=== PATIENT | female | born 1985 | race Caucasian/White ===

== ENCOUNTER 2018-07-31 10:14 | Inpatient (IN) | payer BC, OTHER ==
[~2018-07-31] VITALS: Ht 154.9 cm; Wt 84.8 kg
[2018-07-31] VITALS (51 sets, daily range): BP systolic 126–210; BP diastolic 63–96
[2018-07-31] MEDS ORDERED: LABE300T19 PO (10:40)
[2018-07-31] MEDS ORDERED: ASPI81CH33 PO (10:40)
[2018-07-31] MEDS ORDERED: FOLI1TAB11 PO (10:40)
[2018-07-31] MEDS ORDERED: PREN29CH2 PO (10:40)
[2018-07-31] MEDS ORDERED: ACETAMINOPHEN 500 MG TAB PO ONE (12:00)
[2018-07-31] MEDS ORDERED: PENICILLIN G POTASSIUM IV 5 MU in D5W MINI-BAG PLUS 100 ML IV STA (14:00)
[2018-07-31 14:23] LABS: HEMATOCRIT 37.5 % (36.0-47.0); HEMOGLOBIN 11.9 g/dl (12.0-15.5); MEAN CORPUSCULAR HEMOGLOBIN 26.2 pg (27.0-33.0); MEAN CORPUSCULAR HGB CONC 31.7 g/dl (32.0-36.5); MEAN CORPUSCULAR VOLUME 82.6 fl (80.0-96.0); PLATELET COUNT, AUTOMATED 242 10^3/uL (150-450); RED BLOOD COUNT 4.54 10^6/uL (4.00-5.40); WHITE BLOOD COUNT 15.4 10^3/uL (4.0-10.0)
[2018-07-31] MEDS: miSOPROStol 50 MCG 1/2 TAB (S0191) PO SCH ×3 (14:25→22:50)
[2018-07-31 14:34] LABS: ALT/SGPT 27 U/L (12-78); BILIRUBIN,TOTAL 0.4 MG/DL (0.2-1.0); CREATININE FOR GFR 0.81 MG/DL (0.55-1.30); GLOMERULAR FILTRATION RATE > 60.0 (>60); LDH LACTATE DEHYDROGENASE 122 U/L (84-246); URIC ACID 8.5 MG/DL (2.6-6.0)
[2018-07-31] MEDS ORDERED: hydrALAZINE INJ 20 MG/ML VIAL IV ONE (15:00)
[2018-07-31] MEDS ORDERED: MAG Sulf (L&D) 4 GM/100 ML 4 GM in APPROPRIATE DILUENT 1 EA IV ONE (15:00)
[2018-07-31] MEDS: MAG Sulf (OBGYN) 20GM/500ML 20,000 MG in APPROPRIATE DILUENT 1 EA IV SCH (15:32)
[2018-07-31] MEDS: LR 1,000 ML IV SCH (15:32)
[2018-07-31] MEDS ORDERED: PENICILLIN G POTASSIUM IV 2.5 MU in APPROPRIATE DILUENT 1 EA IV SCH (18:00)
[2018-07-31] MEDS ORDERED: BUTORPHANOL 2 MG/ML INJ (J0595) IV ONE (20:45)
[2018-07-31] MEDS: PROMETHAZINE INJ 25 MG/ML VIAL (J2550) IV PRN (21:00)
[2018-07-31] MEDS: LABETALOL 200 MG TAB PO SCH (21:45)
[2018-07-31] MEDS ORDERED: miSOPROStol 50 MCG 1/2 TAB (S0191) PO ONE (23:15)
--- NOTE | 2018-07-31 23:27 | NUR ---
L&D Note: S: Resting following stadol and phenergen. Headache has improved. Has required 5mg hydralazine. O: mild range currently FHR: 130s, min variability following stadol and phenergan ( prior to stadol, moderate variability with spontaneous accels). No decles. Irregular contraction on tocometer Gen: NAD abd: soft, gravid cx: FT/25/-3 A/P 32yo at 33w4d with CHTN with superimposed pre-E- currently stable Magnesium sulfate neuroprophylaxis -Will increase 100mcg cytotec Aurora Winters MD
[2018-07-31] MEDS ORDERED: ONDANSETRON 4MG/2ML VIAL (J2405) As Ordered ONE (23:37)
[2018-07-31] MEDS ORDERED: ONDANSETRON 4MG/2ML VIAL (J2405) IV PRN (23:45)
[2018-08-01] VITALS (74 sets, daily range): BP systolic 90–188; BP diastolic 50–100
[2018-08-01] MEDS: MAG Sulf (OBGYN) 20GM/500ML 20,000 MG in APPROPRIATE DILUENT 1 EA IV SCH ×3 (01:20→21:35)
[2018-08-01] MEDS ORDERED: miSOPROStol 50 MCG 1/2 TAB (S0191) PO SCH (03:00)
[2018-08-01] MEDS ORDERED: BUTORPHANOL 2 MG/ML INJ (J0595) IV ONE (03:45)
[2018-08-01] MEDS: PROMETHAZINE INJ 25 MG/ML VIAL (J2550) IV PRN (03:50)
--- NOTE | 2018-08-01 05:53 | HPE ---
DATE OF ADMISSION: 07/31/2018 REASON FOR ADMISSION: Chronic hypertension with superimposed preeclampsia. HISTORY OF PRESENT ILLNESS: This patient is a 32-year-old 5, para 3 who presents at 33 weeks 4 days estimated gestational age with estimated date of confinement (EDC) of September 16, 2018. This is a patient who has been followed a [facility]. She was admitted on Sunday, July 29, 2018 with concerns for superimposed preeclampsia. I spoke with her primary sample carrier, Dr. Knight who informed me that she was admitted Wednesday with worsening blood pressures in the severe range. She was given intravenous (IV) hydralazine as well as increased in her labetalol from 500 mg twice a day to 600 mg twice a day and was started on amlodipine 5 mg. She was given a course of betamethasone for lung maturity. She had a 10 biophysical profile with normal growing fetus in the 48%. She had pre-eclamptic labs that were drawn which was unremarkable and was sent home. A 24-hour urine protein previously on July 15 was 317, this morning it returned at 540. The patient was then notified and was instructed to return to the hospital for further management secondary to being diagnosed with superimposed preeclampsia. Secondary to transportation and the proximity to her hospital, she presented to [facility]. Upon her arrival she reports a headache that has been worsening throughout her . She denies any visual changes currently but reports some visual disturbances when her headache has worsened. She denies any abdominal pain. She reports active movement. Denies any contractions, vaginal bleeding or leakage of fluid. course has been remarkable for chronic hypertension. She was initially taking lisinopril and it was switched to hydralazine during her and later switched to labetalol for management of her hypertension. Her care was initiated at the [facility], she was referred to the center at [place] and later transferred to [facility]. Her course was also remarkable for A1 gestational diabetes. PAST MEDICAL HISTORY: Hypertension. PAST SURGICAL HISTORY: None. PAST OBSTETRICAL HISTORY: 5, para 3. She reports having hypertension with her last two pregnancies. She is proven to 7 pounds 10 ounces. MEDICATIONS: - labetalol 600 mg twice a day - amlodipine - vitamins ALLERGIES: She has no known drug allergies. SOCIAL HISTORY: Denies any alcohol, tobacco or drug use during . PHYSICAL EXAMINATION: VITAL SIGNS: Blood pressure 178/93. She has had repetitive elevated blood pressures in the severe range 170s-180s, diastolic are 90s. She has a category 1 rate tracing. heart rate 140s with spontaneous accelerations, moderate variability, no contractions on tocometer. GENERAL APPEARANCE: Well appearing, no acute distress. Lungs: Clear to auscultation bilaterally. CARDIOVASCULAR: Regular rate and rhythm. ABDOMEN: Gravid, nontender. NEUROLOGIC: Neurologically she is grossly intact. ASSESSMENT: 1. This patient is a 32-year-old 5, para 3 at 33 weeks 4 days estimated gestational age, estimated date of confinement (EDC) 09/16/2018 with chronic hypertension with superimposed preeclampsia based on worsening hypertension and worsening proteinuria, currently stable. 2. Reassuring status. PLAN: 1. Admit to Labor and Delivery. CBC, RPR, type and screen, pre-eclamptic panel. 2. Patient has been thoroughly counseled regarding her diagnosis. I discussed management plan to include hypertension management with intravenous (IV) labetalol or hydralazine. I have also discussed magnesium sulfate for neuro protection and recommendations to proceed with induction of labor following her completion of a course of steroids. I discussed induction of labor, and regards to medication as well as procedure performed. She has also been verbally consented for emergency surgery,blood products, anesthesia. All of her questions have been answered. I reviewed risks, benefits as well as alternative treatment, she has agreed with plan. Will initiate her induction of labor with 50 mcg of oral misoprostol. MTDD
[2018-08-01] MEDS ORDERED: OXYTOCIN 30 UNITS IN 0.9% NaCl 500ML IV BAG (J2590) As Ordered ONE (08:22)
[2018-08-01] MEDS ORDERED: PENICILLIN G POTASSIUM IV 5 MU in D5W MINI-BAG PLUS 100 ML IV STA (08:22)
[2018-08-01] MEDS ORDERED: OXYTOCIN DRIP 30 UNITS in APPROPRIATE DILUENT 1 EA IV SCH ×2 (08:30→20:43)
--- NOTE | 2018-08-01 08:32 | IPNPDOC ---
Obstetrical Progress Note Date of Service Aug 01, 2018 Subjective patient reports she is uncomfortable with her contractions. Objective Vital Signs Date Time Temp Pulse Resp B/P (MAP) Pulse Ox O2 Delivery O2 Flow Rate FiO2 08/01/18 06:04 98.3 86 139/69 (92) 08/01/18 03:50 17 Assessment Heart Rate (FHR): 125 Variability: Minimal Accelerations: None Decelerations: None Heart Rate Tracing: Category II (medication induced Category II tracing- Patient is on Magnesium and had Stadol and Phenergan) Tocometer Contractions: Yes Frequency: regular, other (5-7 minutes) Sterile Vaginal Examination Dilation: 1cm Effacement (%): 50% Station: -1 Cervical Consistency: Soft Cervical Position: Anterior Postion/Presentation: Cephalic presentation Assessment and Plan Age: 32 : 5 Term: 3 Pre-term: 0 Abortions: 1 Livin EGA at Admission: 33.3 Status: Reassuring Anticipate: Vaginal Delivery Additional Comments Manriquez bulb ([employer]) inserted after educating patient on insertion. 50/40 cc inserted into manriquez. IV Pitocin ordered and to be started. GBS prophylaxis to be started now. HARJEET MIRELES CNM Aug 01, 2018 08:32
[2018-08-01] MEDS: LABETALOL 200 MG TAB PO SCH ×2 (08:38→21:36)
[2018-08-01] MEDS ORDERED: FENTANYL 2MCG/ML ROPIVACAINE 0.2% IN 0.9% NACL 100ML IVBAG As Ordered ONE (10:22)
[2018-08-01 10:38] LABS: HEMATOCRIT 34.3 % (36.0-47.0); HEMOGLOBIN 11.2 g/dl (12.0-15.5); MEAN CORPUSCULAR HEMOGLOBIN 26.9 pg (27.0-33.0); MEAN CORPUSCULAR HGB CONC 32.7 g/dl (32.0-36.5); MEAN CORPUSCULAR VOLUME 82.5 fl (80.0-96.0); PLATELET COUNT, AUTOMATED 234 10^3/uL (150-450); RED BLOOD COUNT 4.16 10^6/uL (4.00-5.40); WHITE BLOOD COUNT 16.1 10^3/uL (4.0-10.0)
[2018-08-01] MEDS: LR 1,000 ML IV SCH ×2 (11:52→13:39)
[2018-08-01] MEDS ORDERED: ePHEDrine SULFATE 25 MG/5 ML(5MG/ML) SYRINGE As Ordered ONE (11:59)
[2018-08-01] MEDS: ePHEDrine SULFATE 25 MG/5 ML(5MG/ML) SYRINGE IV PRN ×3 (12:00→12:35)
[2018-08-01] MEDS: FENTANYL/ROPIVACAINE/NACL BAG 100 ML EPIDURAL SCH ×2 (12:20→19:12)
[2018-08-01] MEDS ORDERED: EPIDURAL/PCA KEYS XX PRN (12:30)
[2018-08-01] MEDS ORDERED: diphenhydrAMINE INJ 50MG/ML VIAL (J1200) IV PRN (12:30)
[2018-08-01] MEDS ORDERED: LACTATED RINGER'S 1000 ML IV PRN (12:30)
[2018-08-01] MEDS ORDERED: NALOXONE INJ 0.4 MG/1 ML VIAL (J2310) IV PRN (12:30)
[2018-08-01] MEDS ORDERED: REFRIGERATOR IV KEYS XX PRN (12:30)
[2018-08-01] MEDS ORDERED: EPIDURAL COMMENT XX SCH (12:30)
[2018-08-01] MEDS ORDERED: ONDANSETRON 4MG/2ML VIAL (J2405) IV PRN (12:30)
[2018-08-01] MEDS: PENICILLIN G POTASSIUM IV 2.5 MU in APPROPRIATE DILUENT 1 EA IV SCH ×2 (12:34→17:01)
--- NOTE | 2018-08-01 16:02 | IPNPDOC ---
Obstetrical Progress Note Date of Service Aug 01, 2018 Subjective 1440: Patient reports she is comfortable with her epidural. Objective Vital Signs Date Time Temp Pulse Resp B/P (MAP) Pulse Ox O2 Delivery O2 Flow Rate FiO2 08/01/18 15:28 98.7 88 18 127/68 (87) Assessment Heart Rate (FHR): 120 Variability: Moderate Decelerations: None Heart Rate Tracing: Category I Tocometer Contractions: Yes Frequency: regular, other (3-4 minutes) Strength: palpated as mild Sterile Vaginal Examination Dilation: 4 cm Effacement (%): 80% Station: -2 Cervical Consistency: Soft Cervical Position: Anterior Postion/Presentation: Cephalic presentation (AROM to a moderate amount of clear fluid. FSE and IUPC placed ) Assessment and Plan Weeks & Days 33.3 Status: Reassuring Anticipate: Vaginal Delivery Additional Comments Continue with IV Pitocin per order. HARJEET MIRELES CNM Aug 01, 2018 16:02
[2018-08-01] MEDS ORDERED: ACETAMINOPHEN 500 MG TAB PO ONE (18:00)
--- NOTE | 2018-08-01 19:53 | IPNPDOC ---
Obstetrical Progress Note Date of Service Aug 01, 2018 Subjective Patient is comfortable with her epidural. Objective Vital Signs Date Time Temp Pulse Resp B/P (MAP) Pulse Ox O2 Delivery O2 Flow Rate FiO2 08/01/18 19:13 93 18 143/72 (95) 08/01/18 18:43 98.8 Assessment Heart Rate (FHR): 130 Variability: Minimal to moderate Decelerations: Variable Heart Rate Tracing: Category II (occasional variable declerations noted. ) Tocometer Contractions: Yes Frequency: regular Sterile Vaginal Examination Dilation: 4 cm Effacement (%): 90% Station: 0 Postion/Presentation: Cephalic presentation Assessment and Plan Status: Reassuring Anticipate: Vaginal Delivery Additional Comments Patient continue to be on Magnesium 2 grams/hr and is on 12 mu of IV Pitocin. HARJEET MIRELES CNM Aug 01, 2018 19:53
[2018-08-01] MEDS ORDERED: DOCUSATE SODIUM 100 MG CAP PO PRN (20:45)
[2018-08-01] MEDS ORDERED: RHOGAM 300 MCG (1500 IU) INJ (J2790) IM SCH (20:45)
[2018-08-01] MEDS ORDERED: DIBUCAINE 1% OINTMENT 30GM TOP PRN (20:45)
[2018-08-01] MEDS ORDERED: METHYLERGONOVINE MALEATE 0.2 MG TAB PO PRN (20:45)
[2018-08-01] MEDS ORDERED: MEASLES,MUMPS,RUBELLA VACCINE INJ (MMR-II) (90707) SC SCH (20:45)
--- NOTE | 2018-08-01 20:56 | DNPDOC ---
[facility] Delivery Note Delivery Note DATE OF DELIVERY: 08/01/2018 at 2020 PREDELIVERY DIAGNOSIS: 33-3/7 weeks' gestation and labor. POST DELIVERY DIAGNOSIS: Delivered. PROCEDURE: Spontaneous vaginal delivery. BUSINESS PERFORMANCE ANALYST: Harjeet Aguiar CNM, [place] ANESTHESIA: epidural. ESTIMATED BLOOD LOSS: 350 mL. FINDINGS: 4 pounds 6 ounces; 1978 grams; female , Score 8/9, nuchal cord times 1 loose, preeclampsia with severe features, betamethasone complete. DELIVERY SUMMARY: Patient is a 32-year-old female who presented to L&D with complaints of a headache and severe range blood pressures. She received betamethasone from [facility] on 07/30/18. She was placed on magnesium sulfate and received 5 doses of cytotec, a manriquez bulb and IV Pitocin. She progressed to fully dilated at 2018. Dr. Eldridge, neonatology, was notified prior to delivery. She pushed to a living female in the HEATHER position with restitution to LOT at 2020. A loose nuchal cord was noted. The anterior shoulder delivered with ease and the corpus immediately followed. The baby was placed on the maternal abdomen active and crying. The cord was clamped x2 and cut by the FOB. A 3-vessel cord was noted. The placenta delivered spontaneously and intact. The placenta was sent to pathology. Uterine hemostasis was achieved via rapid infusion of IV Pitocin and fundal massage. The vagina, cervix, and perineum were inspected and found to be intact. The baby was taken to the NICU for admission due to prematurity. Baby in room with mom and doing well. Patient plans to formula feed. They are naming their daughter "Rina." Both mom and baby are in stable condition. All counts are correct. HARJEET AGUIAR CNM Aug 01, 2018 20:56
[2018-08-01] MEDS: NITROFURANTOIN (MACROBID) 100 MG CAP PO SCH (21:36)
[2018-08-01] MEDS: IBUPROFEN 800 MG TAB PO PRN (22:21)
[2018-08-02] VITALS (22 sets, daily range): BP systolic 104–177; BP diastolic 56–104
[2018-08-02 06:32] LABS: HEMATOCRIT 34.7 % (36.0-47.0); HEMOGLOBIN 11.3 g/dl (12.0-15.5); MEAN CORPUSCULAR HEMOGLOBIN 26.9 pg (27.0-33.0); MEAN CORPUSCULAR HGB CONC 32.6 g/dl (32.0-36.5); MEAN CORPUSCULAR VOLUME 82.6 fl (80.0-96.0); PLATELET COUNT, AUTOMATED 213 10^3/uL (150-450); WHITE BLOOD COUNT 15.4 10^3/uL (4.0-10.0)
[2018-08-02] MEDS: IBUPROFEN 800 MG TAB PO PRN ×2 (06:35→14:28)
[2018-08-02 07:04] LABS: ALT/SGPT 24 U/L (12-78); BILIRUBIN,TOTAL 0.5 MG/DL (0.2-1.0); CREATININE FOR GFR 0.77 MG/DL (0.55-1.30); GLOMERULAR FILTRATION RATE > 60.0 (>60); LDH LACTATE DEHYDROGENASE 153 U/L (84-246); URIC ACID 5.6 MG/DL (2.6-6.0)
[2018-08-02] MEDS: MAG Sulf (OBGYN) 20GM/500ML 20,000 MG in APPROPRIATE DILUENT 1 EA IV SCH ×2 (07:52→17:34)
[2018-08-02] MEDS: LABETALOL 200 MG TAB PO SCH ×2 (07:53→20:38)
[2018-08-02] MEDS: ONDANSETRON 4MG/2ML VIAL (J2405) IV PRN ×2 (08:36→17:37)
[2018-08-02] MEDS: PRENATAL VITAMINS CHEWABLE TABLET PO SCH (09:00)
[2018-08-02] MEDS ORDERED: DOCUSATE SODIUM 100 MG CAP PO PRN (09:15)
[2018-08-02] MEDS: NITROFURANTOIN (MACROBID) 100 MG CAP PO SCH ×2 (09:55→20:36)
[2018-08-02] MEDS: ACETAMINOPHEN 500 MG TAB PO PRN ×2 (09:57→20:25)
[2018-08-02] MEDS: LR 1,000 ML IV SCH (12:33)
[2018-08-02 23:31] LABS: HEMATOCRIT 32.9 % (36.0-47.0); HEMOGLOBIN 10.6 g/dl (12.0-15.5); MEAN CORPUSCULAR HEMOGLOBIN 26.8 pg (27.0-33.0); MEAN CORPUSCULAR HGB CONC 32.2 g/dl (32.0-36.5); MEAN CORPUSCULAR VOLUME 83.3 fl (80.0-96.0); PLATELET COUNT, AUTOMATED 208 10^3/uL (150-450); RED BLOOD COUNT 3.95 10^6/uL (4.00-5.40); WHITE BLOOD COUNT 12.4 10^3/uL (4.0-10.0)
[2018-08-03] VITALS (27 sets, daily range): BP systolic 142–238; BP diastolic 71–124
[2018-08-03] MEDS ORDERED: NIFEdipine 10 MG CAP PO ONE ×2 (04:00→06:17)
--- NOTE | 2018-08-03 08:16 | NUR ---
Day 2 Status post , IOL/PTB for severe pre-eclampsia S/p magnesium sulfate; discontinued at 24 hours Labile hypertension despite antihypertensive therapy; received two additional doses of Nifedipine 10mg PO overnight. Subjective Pain is well controlled. Lochia decreasing and minimal. Voiding spontaneously. Tolerating a regular diet. Ambulating without any assistance. Denies any subjective fever/chills/nausea/vomiting/headache/visual changes/shortness of breath/chest pain. Objective Vitals: Severe range HTN (see [employer]), normal heart rate, afebrile, adequate urine output. Heart: regular, rate, and rhythm. no murmurs/gallops/rubs Lungs: clear to auscultation bilaterally, no wheezes/crackles/rales/ronchi Abd: soft, nontender, nondistended, uterine fundus is 2cm below umbilicus and firm Ext: no significant edema, nontender, negative Yraed's bilaterally. Assessment/Plan: day 2. Still hypertensive, but asymptomatic. Hemodynamically stable, afebrile, good pain control. -Routine care -Add Nifedipine 30mg daily to Labetalol 600mg BID -Low sodium diet -Repeat Pre-e labs this AM. -Consider switching antihypertensive regimen altogether; may go back to Lisinopril -Routine infectious, fever, pain, and bleeding precautions reviewed Hernan Milan.Nanette., F.A.C.O.G.
[2018-08-03] MEDS: NITROFURANTOIN (MACROBID) 100 MG CAP PO SCH ×2 (08:25→20:45)
[2018-08-03] MEDS: PRENATAL VITAMINS CHEWABLE TABLET PO SCH (08:25)
[2018-08-03] MEDS: LABETALOL 200 MG TAB PO SCH ×3 (08:26→20:46)
[2018-08-03] MEDS: NIFEdipine 30 MG XL TAB PO SCH (08:55)
[2018-08-03 10:10] LABS: HEMOGLOBIN 11.9 g/dl (12.0-15.5); MEAN CORPUSCULAR HEMOGLOBIN 26.6 pg (27.0-33.0); MEAN CORPUSCULAR HGB CONC 32.2 g/dl (32.0-36.5); MEAN CORPUSCULAR VOLUME 82.6 fl (80.0-96.0); PLATELET COUNT, AUTOMATED 246 10^3/uL (150-450); RED BLOOD COUNT 4.48 10^6/uL (4.00-5.40); WHITE BLOOD COUNT 12.8 10^3/uL (4.0-10.0)
[2018-08-03 10:42] LABS: ALBUMIN 2.5 GM/DL (3.2-5.2); ALT/SGPT 29 U/L (12-78); BILIRUBIN,TOTAL 0.3 MG/DL (0.2-1.0); BLOOD UREA NITROGEN 8 MG/DL (7-18); CALCIUM LEVEL 7.5 MG/DL (8.5-10.1); CARBON DIOXIDE LEVEL 29 MEQ/L (21-32); CHLORIDE LEVEL 106 MEQ/L (98-107); CREATININE FOR GFR 0.83 MG/DL (0.55-1.30); GLOMERULAR FILTRATION RATE > 60.0 (>60); GLUCOSE, FASTING 103 MG/DL (70-100); LDH LACTATE DEHYDROGENASE 173 U/L (84-246); POTASSIUM SERUM 3.3 MEQ/L (3.5-5.1); SODIUM LEVEL 141 MEQ/L (136-145); TOTAL PROTEIN 6.2 GM/DL (6.4-8.2); URIC ACID 5.6 MG/DL (2.6-6.0)
[2018-08-03] MEDS ORDERED: hydrALAZINE INJ 20 MG/ML VIAL IV ONE (13:00)
[2018-08-03] MEDS: IBUPROFEN 800 MG TAB PO PRN (14:54)
[2018-08-03] MEDS ORDERED: POTASSIUM CHLORIDE 10 MEQ SR TABLET PO ONE (17:00)
[2018-08-03] MEDS ORDERED: diphenhydrAMINE 50 MG CAP PO ONE (21:00)
[2018-08-03] MEDS: ONDANSETRON 4MG/2ML VIAL (J2405) IV PRN (23:47)
[2018-08-03] MEDS ORDERED: hydrALAZINE INJ 20 MG/ML VIAL IV STA (23:52)
[2018-08-03] MEDS ORDERED: hydrALAZINE INJ 20 MG/ML VIAL As Ordered ONE (23:58)
[2018-08-04] VITALS (19 sets, daily range): BP systolic 128–230; BP diastolic 58–110
[2018-08-04] MEDS ORDERED: LISINOPRIL 10 MG TAB PO ONE
[2018-08-04] MEDS: IBUPROFEN 800 MG TAB PO PRN ×2 (00:19→13:03)
[2018-08-04] MEDS ORDERED: hydrALAZINE INJ 20 MG/ML VIAL IV ONE (00:45)
[2018-08-04] MEDS ORDERED: LABETALOL HCL 100 MG/20 ML VIAL IV STA (02:46)
[2018-08-04] MEDS: LABETALOL 200 MG TAB PO SCH ×3 (06:01→21:04)
[2018-08-04] MEDS: ONDANSETRON 4MG/2ML VIAL (J2405) IV PRN (06:44)
[2018-08-04 07:37] LABS: ALBUMIN 2.6 GM/DL (3.2-5.2); ALT/SGPT 26 U/L (12-78); BILIRUBIN,TOTAL 0.4 MG/DL (0.2-1.0); BLOOD UREA NITROGEN 9 MG/DL (7-18); CALCIUM LEVEL 8.6 MG/DL (8.5-10.1); CARBON DIOXIDE LEVEL 23 MEQ/L (21-32); CHLORIDE LEVEL 107 MEQ/L (98-107); CREATININE FOR GFR 0.93 MG/DL (0.55-1.30); GLOMERULAR FILTRATION RATE > 60.0 (>60); GLUCOSE, FASTING 124 MG/DL (70-100); POTASSIUM SERUM 3.3 MEQ/L (3.5-5.1); SODIUM LEVEL 139 MEQ/L (136-145); TOTAL PROTEIN 6.7 GM/DL (6.4-8.2)
[2018-08-04] MEDS: NIFEdipine 30 MG XL TAB PO SCH (08:08)
[2018-08-04] MEDS: PRENATAL VITAMINS CHEWABLE TABLET PO SCH (08:08)
[2018-08-04] MEDS: NITROFURANTOIN (MACROBID) 100 MG CAP PO SCH ×2 (08:08→21:04)
[2018-08-04] MEDS ORDERED: **hydrALAZINE** 10 MG TAB PO SCH (09:00)
[2018-08-04] MEDS ORDERED: LISINOPRIL 10 MG TAB PO SCH (09:00)
[2018-08-04 09:13] LABS: CHOLESTEROL LEVEL 273 MG/DL (<200); HDL CHOLESTEROL 50 MG/DL (>40); LDL CHOLESTEROL 163 MG/DL (<100); MAGNESIUM LEVEL 1.7 MG/DL (1.8-2.4); NON-HDL-C 223 MG/DL; TRIGLYCERIDES LEVEL 300 MG/DL (<150)
--- NOTE | 2018-08-04 09:56 | CR.PDOC ---
General Date of Consultation: August 04, 2018 Referring Provider: VALENCIA BOWDEN MD. Attending Physician: BEULAH ESPINAL MD Consultation REASON FOR CONSULTATION/CHIEF COMPLAINT: Hypertension HISTORY OF PRESENT ILLNESS: Patient is a 32-year-old white female G5, now P4, who presented to labor and delivery at 33 and 3/7 weeks gestation complaining of headaches and increased blood pressure. Patient was seen and evaluated at [facility] in 07/29/18 for severe hypertension. She was given IV hydralazine and her labetalol was increased from 500 mg BID to 600 mg BID. Additionally, patient was also started on amlodipine 5 mg. Pre-eclamptic labs were drawn and the patient was sent home. Patient presented to [facility] on 07/31/18 after the results of a 24hr urine protein was found to be 540, thus confirming superimposed pre-eclampsia. Patient was complaining of headache without vision changes. Patient delivered a healthy female via on 08/01 at 2020 without any complications. Following delivery, patient's BP remained in the 130's systolic before rising to the 170s SBP the next day. BP reached a maximum of 238/124 the at 2350 on 08/03. Hospitalist team was contacted thereafter to consult regarding the patient's BP. Patient has a history of chronic hypertension. She reports gestational hypertension with her last two pregnancies. She was treated for her hypertension in 2017 when she was prescribed lisinopril and hydrochlorothiazide by her PCP. She reports being well-controlled on these medications. Unfortunately patient shares that she stopped taking her medications when her mother became ill and ultimately succumbed to cancer. ALLERGIES: Please see below. HOME MEDICATIONS: Please see below. PAST MEDICAL HISTORY: 1. HTN 2. Hx of gestational diabetes SOCIAL HISTORY: Patient denies any alcohol, tobacco or illicit drug use. REVIEW OF SYSTEMS: CONSTITUTIONAL: Patient denies any fevers, chills or extreme fatigue HEENT: Denies headache, difficulty swallowing, changes in vision CARDIOVASCULAR: Denies chest pain/discomfort RESPIRATORY: Clear to auscultation bilaterally MUSCULOSKELETAL: No specific aches and pains GASTROINTESTINAL: Mild, intermittent nausea, no vomiting, no new or changing abdominal discomfort SKIN: Denies new or changing skin lesions or rashes NEUROLOGICAL: Denies weakness, changes in speech, difficulty concentrating. PHYSICAL EXAMINATION: VITAL SIGNS: Please see below. GENERAL APPEARANCE: Awake, alert and oriented, in no acute distress HEENT: Normocephalic, atraumatic RESPIRATORY: Clear to auscultation bilaterally CARDIOVASCULAR: Regular rate and rhythm, normal S1 and S2. ABDOMEN: Soft, nontender, nondistended EXTREMITIES: Pulses 2+ and equal in both upper and lower extremity. NEUROLOGICAL: No weakness, no difficulty speaking, PSYCHIATRIC: Normal mood and affect LABORATORY DATA: Please see below. ASSESSMENT/PLAN: 1. Secondary Hypertension -Medical management with Clonidine 0.1 PO every 4 hours PRN and Hydralazine 20 mg PO daily -R/o Hyperaldosteronism, Renin/Aldosterone ratio is pending. Prior labs indicate a decreased potassium and normal sodium. -R/o KARMEN with Doppler US, patient represents the correct demographic for this condition -R/o catecholamines, A1c remains pending 2. Hypokalemia -Oral supplementation -Continue to monitor 3. Leukocytosis -Downward trending, continue to monitor 4. Hyperlipidemia - TAGs of 300, Total cholesterol of 273 and LDL of 163. - Having an LDL of >160 mg/dl plus two additional risk factors (obesity and HTN) indicate the need to medication management. - Consider Statin/Niacin therapy on D/C Vital Signs/I&O Vital Signs Date Time Temp Pulse Resp B/P (MAP) Pulse Ox O2 Delivery O2 Flow Rate FiO2 08/04/18 08:45 158/98 08/04/18 06:01 81 08/04/18 06:01 97.4 18 97 I&O- Last 24 Hours up to 6 AM 08/04/18 05:59 Intake Total 720 ml Output Total 800 ml Balance -80 ml Laboratory Data Labs 24H Laboratory Tests 2 08/04/18 06:54: Anion Gap 9, Glomerular Filtration Rate > 60.0, Blood Urea Nitrogen 9, Creatinine 0.93, Sodium Level 139, Potassium Level 3.3L, Chloride Level 107, Carbon Dioxide Level 23, Calcium Level 8.6, Aspartate Amino Transf (AST/SGOT) 14, Alanine Aminotransferase (ALT/SGPT) 26, Alkaline Phosphatase 87, Total Bilirubin 0.4, Triglycerides Level 300H, LDL Cholesterol 163H, Total Protein 6.7, Albumin 2.6L, Magnesium Level 1.7L, Albumin/Globulin Ratio 0.63L, Total Ch olesterol 273H, Non-HDL Cholesterol (LDL + VLDL) 223, Total HDL Cholesterol 50, Cholesterol/HDL Ratio 5.460H 08/04/18 09:10: CBC/BMP Laboratory Tests 08/04/18 06:54 Calcium Level 8.6, Aspartate Amino Transf (AST/SGOT) 14, Alanine Aminotransferase (ALT/SGPT) 26, Alkaline Phosphatase 87, Total Bilirubin 0.4, Triglycerides Level 300 H, LDL Cholesterol 163 H, Total Protein 6.7, Albumin 2.6 L Allergies Coded Allergies: Blueberry (Verified Allergy, Severe, 07/31/18) Home Medications Scheduled Aspirin (Aspirin) 81 Mg Tab.chew, 1 TAB PO DAILY for pain for 30 Days, #30 (Reported) Folic Acid (Folic Acid) 1 Mg Tablet, 1 TAB PO DAILY for 30 Days, #30 (Reported) Labetalol HCl (Labetalol HCl) 300 Mg Tablet, 600 MG PO BID, (Reported) No115/Iron/Folic Acid ( 19 Chewable Tablet) 1 Each Tab.chew, 1 TAB PO DAILY for 30 Days, #30 (Reported) GME ATTESTATION GME ATTESTATION My faculty preceptor for this patient encounter was physically present during the encounter and was fully available. All aspects of the patient interview, examination, medical decision making process, and medical care plan development were reviewed and approved by the faculty preceptor. The faculty preceptor is aware and concurs with the plan as stated in the body of this note and will attest to such by his/her cosignature. ADRIAN MOELLER DO August 04, 2018 09:56
[2018-08-04] MEDS: SERTRALINE HCL 25 MG TABLET PO SCH (10:04)
[2018-08-04] MEDS ORDERED: cloNIDine 0.1 MG TAB PO PRN (10:30)
[2018-08-04] MEDS ORDERED: **hydrALAZINE** 10 MG TAB PO ONE (11:15)
[2018-08-04] MEDS: **hydrALAZINE** 10 MG TAB PO SCH ×3 (11:25→22:01)
[2018-08-04] MEDS ORDERED: POTASSIUM CHLORIDE 10 MEQ SR TABLET PO ONE (11:30)
[2018-08-04 11:42] LABS: HEMOGLOBIN A1c 5.3 %
--- NOTE | 2018-08-04 17:01 | ECGEPIP ---
Stationary ECG Study [facility] Test Date: 2018-08-04 Pat Name: ROSANNA REZA Department: Room: [place] [address] Gender: F Commercial Loan Manager: LOWELL : 1985 Requested By: BEULAH Cunha Order Number: [id number] Reading MD: Art Greenberg Measurements Intervals Sharon Rate: 79 P: 13 MI: 124 QRS: -10 QRSD: 92 T: 26 QT: 404 QTc: 465 Interpretive Statements Normal sinus rhythm Left ventricular hypertrophy likely Comparison tracing not on file Electronically Signed On 08-04-2018 17:01:01 EDT by Art Greenberg
[2018-08-04] MEDS: cloNIDine 0.2 MG TAB PO SCH ×2 (18:51→23:05)
[2018-08-05] VITALS (11 sets, daily range): BP systolic 129–174; BP diastolic 70–110
[2018-08-05] MEDS: LABETALOL 200 MG TAB PO SCH ×2 (05:07→13:52)
[2018-08-05] MEDS: **hydrALAZINE** 10 MG TAB PO SCH (06:03)
[2018-08-05] MEDS: cloNIDine 0.2 MG TAB PO SCH (06:03)
--- NOTE | 2018-08-05 06:23 | NUR ---
PPD#4 -No overnight issues. Ms Reyes was seen by hospitalist service and was started on po hydrazine and clonidine. She has renal u/s ordered and labs with hyperaldosteronism as a working dz for secondary hypertension. S: Doing well w/o complaints. Denies headache, visual changes or abd pain O: vs: 144/88, AF gen: well appearing abd: soft, nttp neuro: grossly intact A/P: PPD#4 s/p PTD for superimposed preeclampsia - currently stable -cont evaluation for 2nd HTN. Consider disposition pending results and recommendations Aurora Winters MD
[2018-08-05] MEDS ORDERED: amLODIPine 10 MG TAB PO ONE (07:00)
[2018-08-05] MEDS ORDERED: cloNIDine 0.1 MG TAB PO ONE (07:00)
[2018-08-05] MEDS ORDERED: ISOVUE-370 76% 100ML VIAL (Q9967) As Ordered ONE (07:17)
[2018-08-05 07:58] LABS: BLOOD UREA NITROGEN 14 MG/DL (7-18); CALCIUM LEVEL 8.2 MG/DL (8.5-10.1); CARBON DIOXIDE LEVEL 24 MEQ/L (21-32); CHLORIDE LEVEL 110 MEQ/L (98-107); CREATININE FOR GFR 0.94 MG/DL (0.55-1.30); GLOMERULAR FILTRATION RATE > 60.0 (>60); GLUCOSE, FASTING 117 MG/DL (70-100); MAGNESIUM LEVEL 1.8 MG/DL (1.8-2.4); POTASSIUM SERUM 3.8 MEQ/L (3.5-5.1); SODIUM LEVEL 141 MEQ/L (136-145)
[2018-08-05] MEDS: NITROFURANTOIN (MACROBID) 100 MG CAP PO SCH ×2 (09:32→21:11)
[2018-08-05] MEDS: SERTRALINE HCL 25 MG TABLET PO SCH (09:32)
[2018-08-05] MEDS: PRENATAL VITAMINS CHEWABLE TABLET PO SCH (09:32)
--- NOTE | 2018-08-05 10:02 | REP ---
CT ABDOMEN AND PELVIS WITH IV CONTRAST: TECHNIQUE: Axial contrast enhanced images from the lung bases to the pubic symphysis using 100 mL Isovue 370 intravenous contrast material with multiplanar reformations. The visualized lung bases are clear. The liver is enlarged. Length of the liver is approximately 19.3 cm. No liver mass is seen. The spleen is unremarkable. The adrenals demonstrate no mass. The pancreas demonstrates no mass. There is a solid mass in the lower pole of the right kidney which heterogeneously enhances and measures 3 cm in diameter. There is a small nodule in the upper pole of the left kidney which is too small to characterize measuring 8 mm in diameter. This could represent a small cyst. There is no hydronephrosis bilaterally. No adenopathy is seen. There is no free air or free fluid. There is no bowel wall thickening. There is no appendicitis. The uterus is enlarged. Follicle in the right ovary measures 1.4 cm and another in the left ovary measures 2.2 cm. Urinary bladder is not well distended and not optimally evaluated. A tiny subcentimeter cyst is seen in the mid right kidney. IMPRESSION: Mild hepatomegaly. No adrenal mass. There is a solid mass in the lower pole of the right kidney 3 cm in diameter. Electronically Signed by Sukh Singletary MD 08/05/2018 01:29 P
[2018-08-05] MEDS: MINOXIDIL 2.5 MG TAB PO SCH ×2 (11:00→21:00)
[2018-08-05] MEDS ORDERED: cloNIDine 0.1 MG TAB PO SCH (12:00)
[2018-08-05] MEDS ORDERED: **hydrALAZINE HCL** 25 MG TAB PO SCH (13:00)
[2018-08-05] MEDS ORDERED: POTASSIUM CHLORIDE 10 MEQ SR TABLET PO ONE (15:15)
--- NOTE | 2018-08-05 15:20 | IPNPDOC ---
Text Note Date of Service The patient was seen on 08/05/18. NOTE SUBJECTIVE: Patient was interviewed and examined today in maternity. She was awake, alert and oriented sitting upright in her hospital had wearing hospital clothing. No headaches or episodes of dizziness, no vision changes. Overnight, pressures remained stable fluctuating between 164-128 systolic and 110 and 60 diastolic utilizing clonidine and hydralazine. She denies chest pain, discomfort, difficulty breathing, reflux or abdominal pain, difficulty urinating or difficulty stooling. She is up and ambulating. REVIEW OF SYSTEMS: CONSTITUTIONAL: Patient denies any fevers, chills or extreme fatigue HEENT: Denies headache, difficulty swallowing, changes in vision, denies di CARDIOVASCULAR: Denies chest pain/discomfort RESPIRATORY: Clear to auscultation bilaterally, free of wheezes or rhonchi MUSCULOSKELETAL: No specific aches and pains GASTROINTESTINAL: Mild, intermittent nausea, no vomiting, no new or changing abdominal discomfort SKIN: Denies new or changing skin lesions or rashes NEUROLOGICAL: Denies weakness, changes in speech, difficulty concentrating. PHYSICAL EXAMINATION: VITAL SIGNS: Please see below. GENERAL APPEARANCE: Awake, alert and oriented, in no acute distress HEENT: Normocephalic, atraumatic RESPIRATORY: Clear to auscultation bilaterally CARDIOVASCULAR: Regular rate and rhythm, normal S1 and S2. ABDOMEN: Soft, nontender, nondistended EXTREMITIES: Pulses 2+ and equal in both upper and lower extremity. NEUROLOGICAL: No weakness, no difficulty speaking PSYCHIATRIC: Normal mood and affect LABORATORY DATA: Please see below. IMAGING: Abdomen/pelvis CT (08/05/18): Mild hepatomegaly, no adrenal mass. Solid mass in the lower pole of the right kidney measuring 3 Sinemet is in diameter Renal ultrasound with Doppler (08/05/18): Pending radiology read ASSESSMENT/PLAN: 1. Secondary Hypertension -Medical management with chlorthalidone 50 mg daily, lisinopril 20 mg twice a day, and labetalol 800 mg twice a day -Continue to monitor BP -R/o Hyperaldosteronism, Renin/Aldosterone ratio remain pending. Prior labs indicate a decreased potassium and normal sodium. -R/o KARMEN with Doppler US, imaging study complete, pending read -R/o catecholamines 2. Hypokalemia -Oral supplementation -Continue to monitor 3. Leukocytosis -Downward trending, continue to monitor 4. Hyperlipidemia - TAGs of 300, Total cholesterol of 273 and LDL of 163. - Having an LDL of >160 mg/dl plus two additional risk factors (obesity and HTN) indicate the need to medication management. - Consider Statin/Niacin therapy on D/C 5. Solid Renal Mass, 3cm in diameter - Incidental finding on Abd/Pel CT with contrast, did demonstrate heterogeneous enhancement - Case discussed with Urologist, Dr. Mcneil, who suggested repeat CT Abd/Pelv under Renal Mass Protocol and subsequent follow-up appointment with Dr. Davis's office upon discharge. - Unfortunately, patient's initial Abd/Pelv with contrast was performed today. Pt will be required to wait 24 hours before having repeat scan under renal mass protocol as this study requires CT both without and with contrast to assess for mass enhancement. Plan for imaging study at 0900 tomorrow. DISPOSITION: Discharge upon stabilization of BP on PO regimen. VS,Fishbone, I+O VS, Fishbone, I+O Laboratory Tests 08/05/18 07:13 Calcium Level 8.2 L Vital Signs Date Time Temp Pulse Resp B/P (MAP) Pulse Ox O2 Delivery O2 Flow Rate FiO2 08/05/18 13:58 97.1 76 18 130/76 (94) 96 GME ATTESTATION GME ATTESTATION My faculty preceptor for this patient encounter was physically present during the encounter and was fully available. All aspects of the patient interview, examination, medical decision making process, and medical care plan development were reviewed and approved by the faculty preceptor. The faculty preceptor is aware and concurs with the plan as stated in the body of this note and will attest to such by his/her cosignature. ADRIAN MOELLER DO August 05, 2018 15:19
[2018-08-05] MEDS ORDERED: CHLORTHALIDONE 25 MG TAB PO ONE (15:30)
--- NOTE | 2018-08-05 17:39 | REP ---
RENAL ULTRASOUND WITH DUPLEX DOPPLER RENAL ARTERY EVALUATION: Real-time ultrasound evaluation of the kidneys are performed. Kidneys are normal in size and echotexture. Right kidney measuring 4.1 x 4.9 x 4.2 cm and left kidney 11.6 x 5.2 x 4.9 cm. There is no hydronephrosis bilaterally. There is a solid mass in the lower pole of the right kidney which measures 3.5 x 3.2 x 2.9 cm. Small cyst is seen in the upper pole of the left kidney 9 mm in diameter. Incidental note is made of an enlarged uterus, 4 days. Length is 13.7 cm. Urinary bladder is empty and is not evaluated. Real-time ultrasound evaluation and duplex Doppler interrogation of the renal arteries is performed bilaterally. Peak systolic velocity of the abdominal aorta at the level of the renal arteries are 108 cm/s. Peak systolic velocity in the right renal artery is 94.5 cm/s, renal to aortic ratio 0.88. Resistive indices are measured in the upper, middle and lower thirds of the right kidney and measure between 0.68 and 0.72. Acceleration time range between 0.032 and 0.042. Peak systolic velocity in the main left renal artery is 67.6 cm/s, renal to aortic ratio is 0.63, resistive indices left kidney range between 0.67 and 0.70. Acceleration times range between 0.034 and 0.040. IMPRESSION: Solid mass lower pole right kidney with a maximum diameter of 3.5 cm. No hydronephrosis. Small cyst upper pole left kidney. No compelling duplex Doppler sonographic evidence of significant renal artery stenosis. Electronically Signed by Sukh Singletary MD 08/06/2018 02:58 P
[2018-08-05] MEDS ORDERED: LABETALOL 200 MG TAB PO SCH (21:00)
[2018-08-05] MEDS: LISINOPRIL 20 MG TAB PO SCH (21:11)
[2018-08-06 01:30] VITALS: BP 100/58
[2018-08-06 03:30] VITALS: BP 128/82
[2018-08-06] MEDS: ACETAMINOPHEN 500 MG TAB PO PRN (04:07)
[2018-08-06 06:00] VITALS: BP 138/82
[2018-08-06 07:43] LABS: BLOOD UREA NITROGEN 18 MG/DL (7-18); CALCIUM LEVEL 8.8 MG/DL (8.5-10.1); CARBON DIOXIDE LEVEL 21 MEQ/L (21-32); CHLORIDE LEVEL 108 MEQ/L (98-107); CREATININE FOR GFR 0.98 MG/DL (0.55-1.30); GLOMERULAR FILTRATION RATE > 60.0 (>60); GLUCOSE, FASTING 99 MG/DL (70-100); POTASSIUM SERUM 4.1 MEQ/L (3.5-5.1); SODIUM LEVEL 135 MEQ/L (136-145)
[2018-08-06] MEDS ORDERED: LABE300T2 PO ×2 (07:47→08:48)
[2018-08-06] MEDS ORDERED: CHLO25TA PO ×2 (07:47→08:48)
[2018-08-06] MEDS ORDERED: LISI-538 PO ×2 (07:47→08:48)
[2018-08-06] MEDS ORDERED: ISOVUE-370 76% 100ML VIAL (Q9967) As Ordered ONE (08:52)
[2018-08-06] MEDS ORDERED: LABETALOL 200 MG TAB PO SCH (09:00)
[2018-08-06] MEDS ORDERED: CHLORTHALIDONE 25 MG TAB PO SCH (09:00)
--- NOTE | 2018-08-06 09:13 | IPNPDOC ---
Text Note Date of Service The patient was seen on 08/06/18. NOTE SUBJECTIVE: Patient was interviewed and examined this morning in her hospital room. She denies any acute complaints. Results of patient's prior CT yesterday and finding of a renal mass measuring 3 cm was again discussed. Reasoning for follow-up CT this morning was also discussed and patient's questions regarding outpatient follow-up and management possibilities were answered. Overnight, patient's blood pressure remained stable. Discharge medications, Chlorthalidone, lisinopril and labetolol were discussed with the patient along with the signs and symptoms of both hyper/hypotension. Follow-up to be scheduled with Dr. Whiteside for ongoing management of HTN, Dr. Davis for ongoing management of patient's renal mass, and her PCP to review labs, particularly her hyperlipidemia. Patient was in agreement with discharge plan. REVIEW OF SYSTEMS: CONSTITUTIONAL: Patient denies any fevers, chills or extreme fatigue HEENT: Denies headache, difficulty swallowing, changes in vision or dizziness CARDIOVASCULAR: Denies chest pain/discomfort RESPIRATORY: Clear to auscultation bilaterally, free of wheezes or rhonchi MUSCULOSKELETAL: No specific aches and pains GASTROINTESTINAL: Resolved nausea, no vomiting, no abdominal pain. SKIN: Denies new or changing skin lesions or rashes NEUROLOGICAL: Denies weakness, changes in speech, difficulty concentrating. PHYSICAL EXAMINATION: VITAL SIGNS: Please see below. GENERAL APPEARANCE: Awake, alert and oriented, in no acute distress HEENT: Normocephalic, atraumatic, EOMI, sclera nonicteric, membranes moist RESPIRATORY: Clear to auscultation bilaterally, free of wheezes rales or rhonchi CARDIOVASCULAR: Regular rate and rhythm, normal S1 and S2. No murmur appreciated ABDOMEN: Soft, nontender, nondistended, bowel sounds throughout EXTREMITIES: Pulses 2+ and equal in both upper and lower extremity. Able to move extremities freely without difficulty bilaterally. No lower extremity edema or calf tenderness NEUROLOGICAL: No weakness, no difficulty speaking, no focal neurologic deficits PSYCHIATRIC: Normal mood and affect LABORATORY DATA: Please see below. IMAGING: Abdomen/pelvis CT (08/05/18): Mild hepatomegaly, no adrenal mass. Solid mass in the lower pole of the right kidney measuring 3 Sinemet is in diameter Renal ultrasound with Doppler (08/05/18): Solid mass lower pole of the right kidney with a maximum diameter 3.5 cm. No hydronephrosis. Small cyst in the upper pole of the left kidney. No compelling duplex Doppler sonographic evidence of any significant renal artery stenosis. ASSESSMENT/PLAN: 1. Secondary Hypertension -Medical management with chlorthalidone 50 mg daily, lisinopril 20 mg twice a day, and labetalol 600 mg twice a day -Continue to monitor BP -R/o Hyperaldosteronism, Renin/Aldosterone ratio remain pending. Prior labs indicate a decreased potassium and normal sodium. -Renal artery ultrasound with Doppler study did not indicate any significant naomi al artery stenosis -CT of the abdomen and pelvis did not reveal any adrenal adenomas, catecholamines remain pending -Outpatient follow-up with Dr. Whiteside for further medical management of patient's HTN. -Home monitoring of BP 2. Hypokalemia -Oral supplementation -Patient received oral supplementation while in the hospital. 3. Leukocytosis -Continued downward trend while patient was hospitalized -No clinical signs/symptoms of underlying infection 4. Hyperlipidemia - TAGs of 300, Total cholesterol of 273 and LDL of 163. - Having an LDL of >160 mg/dl plus two additional risk factors (obesity and HTN) indicate the need to medication management. - Consider Statin/Niacin therapy as outpatient 5. Solid Renal Mass, 3cm in diameter - Incidental finding on Abd/Pel CT with contrast, did demonstrate heterogeneous enhancement - Case discussed with Urologist, Dr. Mcneil, who suggested repeat CT Abd/Pelv under Renal Mass Protocol and subsequent follow-up appointment with Dr. Davis's office upon discharge. - Renal Mass CT results pending. RECOMMENDATIONS FOR DISCHARGE: -Discharge pending CT of Abd/Pelv under renal mass protocol -Continue on PO blood pressure medications. Prescriptions sent to patient's pharmacy for Lisinopril 20 mg BID, Chlorthalidone 50 mg QD and Labetalol 600 mg BID. -Follow-up appointment with Dr. Whiteside for HTN -Follow-up with Dr. Davis for Renal Mass -Follow-up with PCP for hospital follow-up, management of hyperlipidemia and to review pending lab work. VS,Fishbone, I+O VS, Fishbone, I+O Laboratory Tests 08/06/18 06:38 Calcium Level 8.8 Vital Signs Date Time Temp Pulse Resp B/P (MAP) Pulse Ox O2 Delivery O2 Flow Rate FiO2 5/4/19 06:00 98.8 83 18 138/82 100 98 GME ATTESTATION GME ATTESTATION My faculty preceptor for this patient encounter was physically present during the encounter and was fully available. All aspects of the patient interview, examination, medical decision making process, and medical care plan development were reviewed and approved by the faculty preceptor. The faculty preceptor is aware and concurs with the plan as stated in the body of this note and will attest to such by his/her cosignature. ADRIAN MOELLER DO August 06, 2018 09:13
[2018-08-06] MEDS: NITROFURANTOIN (MACROBID) 100 MG CAP PO SCH (09:18)
[2018-08-06] MEDS: PRENATAL VITAMINS CHEWABLE TABLET PO SCH (09:18)
[2018-08-06] MEDS: SERTRALINE HCL 25 MG TABLET PO SCH (09:19)
[2018-08-06 09:21] VITALS: BP 152/98
[2018-08-06] MEDS: LISINOPRIL 20 MG TAB PO SCH (09:22)
[2018-08-06] MEDS: MINOXIDIL 2.5 MG TAB PO SCH (09:22)
[2018-08-06 11:00] VITALS: BP 118/84
--- NOTE | 2018-08-06 11:59 | REP ---
CT ABDOMEN AND PELVIS WITH AND WITHOUT IV CONTRAST: TECHNIQUE: Axial noncontrast images through the abdomen followed by contrast-enhanced images through the abdomen and pelvis using 100 mL Isovue 370 intravenous contrast material, with coronal and sagittal reformations. COMPARISON: 08/05/2018. Visualized lung bases are clear. Precontrast images show a 3 mm calcification in the left kidney upper pole collecting system and a 2 mm calcification in the lower pole collecting system. Tiny argenis like calcification is seen in the mid right kidney somewhat posteriorly. Postcontrast images are performed in three phases to evaluate a right renal mass. There is again noted a 3 cm mass in the lower pole of the right kidney. This demonstrates heterogeneous arterial phase enhancement with persistent mild diffuse enhancement on delayed images. There is a small cyst in the upper pole of the left kidney. There is no hydronephrosis bilaterally. The liver is again noted to be enlarged with a length of approximately 19 to 20 cm. No liver or splenic mass is seen. Adrenals demonstrate no mass. Pancreas is unremarkable. There is no abnormal aortic aneurysm. There is no adenopathy. There is no free air or free fluid. There is no bowel abnormality identified. Enlarged uterus is again noted. The patient is . IMPRESSION: Solid renal mass. Differential diagnosis would include carcinoma or oncocytoma. Hepatomegaly again noted. Electronically Signed by Sukh Singletary MD 08/06/2018 03:46 P
[2018-08-10 10:11] LABS: DOPAMINE PLASMA <30 pg/mL (0-48); EPINEPHRINE PLASMA 38 pg/mL (0-62); NOREPINEPHRINE PLASMA 252 pg/mL (0-874)
== END 2018-08-06 13:15 | disposition home or self-care (01) | DRG 560 ==
LOC: M LDO 10:14 → M LDI 12:55 → M OBS 08-02 22:02
PROVIDERS: ADMIT Obstetrics & Gynecology; ATTEND Advanced Practice Midwife
PROC: 3E0P7GC Introduction of Other Therapeutic Substance into Female Reproductive, Via Natural or Artificial Opening (ICD-10-PCS; 2018-07-31)
PROC: 10E0XZZ Delivery of Products of Conception, External Approach (ICD-10-PCS; principal; 2018-08-01)
PROC: 10907ZC Drainage of Amniotic Fluid, Therapeutic from Products of Conception, Via Natural or Artificial Opening (ICD-10-PCS; 2018-08-01)
DX: O11.4 Pre-existing hypertension with pre-eclampsia, complicating childbirth (principal); Z3A.33 33 weeks gestation of pregnancy; O10.02 Pre-existing essential hypertension complicating childbirth; O24.420 Gestational diabetes mellitus in childbirth, diet controlled; O69.81X0 Labor and delivery complicated by cord around neck, without compression, not applicable or unspecified; E87.6 Hypokalemia; E78.5 Hyperlipidemia, unspecified; N28.89 Other specified disorders of kidney and ureter; O99.284 Endocrine, nutritional and metabolic diseases complicating childbirth; O26.833 Pregnancy related renal disease, third trimester; Z37.0 Single live birth

== ENCOUNTER 2018-10-19 07:18 | Inpatient (IN) | payer OTHER ==
[2018-10-19] VITALS (8 sets, daily range): BP systolic 121–159; BP diastolic 68–86
[~2018-10-19] VITALS: Ht 154.9 cm; Wt 77.9 kg
[2018-10-19 07:13] LABS: URINE PREG TEST NEGATIVE (NEGATIVE)
[~2018-10-19 07:18] MED LIST: ASPI81CH33 PO; BUPIVACAINE HCL 0.25% 30 ML VIAL As Ordered ONE; CETI10CA2 PO; CHLO25TA PO; DULO1CAP5 PO; FOLI1TAB11 PO; HYDROmorphone HCL 2 MG/ML 1ML VIAL (J1170) As Ordered ONE; KETAMINE HCL 200 MG/20 ML VIAL As Ordered ONE; LABE300T19 PO; LABE300T2 PO; LIDOCAINE 1% MDV INJ 50 ML VIAL As Ordered ONE; LIDOCAINE 2% INJ 100 MG/5 ML SDV (FOR ANES.) As Ordered ONE; LISI-538 PO; LR 1,000 ML IV ONE; MIDAZOLAM INJ 2 MG/2 ML VIAL (J2250) As Ordered ONE; ONDANSETRON 4MG/2ML VIAL (J2405) As Ordered ONE; PREN29CH2 PO; PROPOFOL 200 MG/20 ML VIAL As Ordered ONE; ROCURONIUM BROMIDE 50 MG/5 ML VIAL As Ordered ONE; ceFAZolin 2 GM/D5W 50 ML IV BAG (J0690 PER 500MG) As Ordered ONE; dexameTHASONE 4 MG/ML 1ML VIAL (J1100) As Ordered ONE; fentaNYL 100 MCG/2 ML INJECTION (J3010) As Ordered ONE
[2018-10-19] MEDS ORDERED: SULF1TAB93 PO (07:29)
[2018-10-19] MEDS: NS 1,000 ML IV SCH ×3 (07:29→20:50)
[2018-10-19] MEDS ORDERED: ONDANSETRON 4MG/2ML VIAL (J2405) IV PRN ×2 (07:30→12:30)
[2018-10-19] MEDS ORDERED: PERCOCET 5MG/325MG TAB PO PRN (07:30)
[2018-10-19] MEDS ORDERED: ACETAMINOPHEN TAB 650MG DOSE (2X325MG) PO PRN (07:30)
[2018-10-19] MEDS ORDERED: fentaNYL 100 MCG/2 ML INJECTION (J3010) As Ordered ONE (07:47)
[2018-10-19] MEDS ORDERED: MANNITOL 25% 12.5 GM/50 ML VIAL (J2150) As Ordered ONE (08:10)
[2018-10-19] MEDS ORDERED: ROCURONIUM BROMIDE 50 MG/5 ML VIAL As Ordered ONE (08:23)
[2018-10-19] MEDS ORDERED: PHENYLephrine HCL 500 MCG/5 ML (100MCG/ML) SYRINGE (J2370) As Ordered ONE (08:28)
[2018-10-19] MEDS ORDERED: SUGAMMADEX SODIUM 500 MG/5 ML VIAL (BRIDION) As Ordered ONE (08:36)
[2018-10-19] MEDS ORDERED: LIDOCAINE 1% SDV INJ 30 ML VIAL As Ordered ONE (08:42)
[2018-10-19] MEDS ORDERED: ACETAMINOPHEN 1000MG 100ML IV BTL (OFIRMEV) (J0131 PER 10MG) As Ordered ONE (08:43)
[2018-10-19] MEDS: DOCUSATE SODIUM 100 MG CAP PO SCH ×2 (09:00→20:35)
[2018-10-19] MEDS ORDERED: PROPOFOL 200 MG/20 ML VIAL As Ordered ONE (09:19)
[2018-10-19] MEDS ORDERED: LABETALOL HCL 100 MG/20 ML VIAL As Ordered ONE (10:31)
[2018-10-19] MEDS ORDERED: FUROSEMIDE 100 MG/10 ML VIAL (J1940) As Ordered ONE (11:16)
[2018-10-19] MEDS ORDERED: oxyCODONE 5MG TAB PO PRN (12:30)
[2018-10-19] MEDS ORDERED: fentaNYL 100 MCG/2 ML INJECTION (J3010) IV PRN (12:30)
[2018-10-19] MEDS ORDERED: LR 1,000 ML IV SCH (12:30)
[2018-10-19 12:38] LABS: HEMATOCRIT 37.7 % (36.0-47.0); MEAN CORPUSCULAR HEMOGLOBIN 27.2 pg (27.0-33.0); MEAN CORPUSCULAR HGB CONC 31.8 g/dl (32.0-36.5); MEAN CORPUSCULAR VOLUME 85.5 fl (80.0-96.0); PLATELET COUNT, AUTOMATED 272 10^3/uL (150-450); RED BLOOD COUNT 4.41 10^6/uL (4.00-5.40); WHITE BLOOD COUNT 16.1 10^3/uL (4.0-10.0)
[2018-10-19 12:53] LABS: CALCIUM LEVEL 8.3 MG/DL (8.5-10.1); CREATININE FOR GFR 2.36 MG/DL (0.55-1.30); GLOMERULAR FILTRATION RATE 25.1 (>60); POTASSIUM SERUM 4.5 MEQ/L (3.5-5.1)
[2018-10-19] MEDS: ceFAZolin SOD 1 GM in D5W MINI-BAG PLUS 50 ML IV SCH (16:23)
[2018-10-19] MEDS: PERCOCET 5MG/325MG TAB PO PRN ×2 (16:30→20:35)
--- NOTE | 2018-10-19 18:12 | ROOPDOC ---
[facility] Report Of Operation Report of Operation DATE OF PROCEDURE: 10/19/18 PREPROCEDURE DIAGNOSES: Right Renal Neoplasm. POSTPROCEDURE DIAGNOSES: Right Renal Neoplasm. PROCEDURE: Right Robotic-assisted Laparoscopic Partial Nephrectomy with Intraoperative Ultrasound for Tumor Mapping. SURGEON: Christina Taylor MD [employer] REPRESENTATIVE: Anastacia Loredo NP ANESTHESIA: General OPERATIVE INDICATIONS: This is a 32 year old female with a 3cm right renal neoplasm concerning for malignancy. It was recommended that she undergo the above procedure for treatment. DESCRIPTION OF PROCEDURE: The patient was brought to the operating room and general anesthesia was induced. Prophylactic antibiotics were infused. A Shane catheter was placed under sterile conditions. The patient was then placed in the left lateral decubitus position. All pressure points were appropriately padded and an axillary roll was placed. She was secured to the table with tape. The patient was then prepped and draped in the usual sterile fashion. The initial incision was for an 8mm port in line with the 11th rib along the lateral rectus margin. A Veress needle was then utilized to achieve the pneumoperitoneum. An 8mm port was then placed in through this incision and through which the camera was inserted. There were no injuries from Veress needle placement or initial trocar placement. The remaining ports were then placed under vision. The right hand robotic port was placed along the costal margin in line with the camera port. Another 5 mm port was placed just inferior to the xyphoid for access for a liver retractor. Two left robotic ports were placed with one just inferior to the camera port, and the other between the anterior-superior iliac spine and the umbilicus. A 12mm phlebotomy lab assistant port was placed in between the camera port and the more cephalad left hand robotic port. The robot was then docked. We started by releasing attachments between the liver and Gerota's fascia. We then lifted up the liver with a laparoscopic locking Allis clamp. Next the right colon was dissected off of Gerota's fascia. We then Kocherized the duodenum. At this point the inferior vena cava (IVC) was identified. A plane was made onto the lateral aspect of the IVC and this was carried cephalad until the right renal vein was encountered. This was carefully dissected and just inferior to the renal vein, the 2 branches of the renal artery were identified. They were carefully dissected. Next 12.5g of mannitol was administered. Gerota's fascia was then opened and I defatted the kidney. On the posterior and inferior aspect of the kidney the tumor was seen. It was partly exophytic and partly endophytic. Ultrasound was then utilized to sonido the boundaries of the mass, which was located on the inferior aspect of the kidney. Next a bulldog clamp was placed on the 2 branches of the renal renal artery and we began resecting the mass. The mass was dissected completely and it appeared that we had a good margin. Once the mass was removed, the renorrhaphy was performed first by ligating all vessels in the base of resection with a 2-0 vicryl suture using figure of eight stitches. The capsule of the kidney was then reapproximated using 0-vicryl suture with Weck clips to cinch down the suture. Once this was done the clamp was removed and hemostasis was excellent. The warm ischemia time was 36 minutes. Next Camille was applied to the resection bed and the tumor was placed in an endocatch bag. A Carlos Moya drain was positioned just medial to the kidney. The liver retractor was then removed and the robot was undocked after confirming hemostasis within the abdomen. The phlebotomy lab assistant port was then extended at the skin level and then at the fascia. The specimen was then removed in the endocatch bag. The fascia was then closed with a running #0 Vicryl suture. At this point, the abdomen was reinsufflated and we looked back in with the camera and there was no bleeding underneath the extraction site. No abdominal contents were caught within the closure either. We then removed all the ports under direct vision and there was no bleeding from any of the port sites. At this point, all the incisions were thoroughly irrigated. The subcutaneous tissue of the extraction incision was then reapproximated using interrupted #3-0 Vicryl suture. We then closed the skin of each site using a running #4-0 subcuticular Monocryl stitch. The Carlos Moya drain was secured to the skin usint #3-0 Ethilon suture. Local anesthetic was then applied to each incision and Dermabond was then applied and this marked the conclusion of the procedure. The patient was then taken out of the left lateral decubitus position, awakened from anesthesia and transported to the recovery room in stable condition. ESTIMATED BLOOD LOSS: 250 mL INTRAOPERATIVE COMPLICATIONS: None SPECIMENS: Right renal neoplasm WARM ISCHEMIA TIME: 36 minutes NORMAL RIGHT RENAL PARENCHYMA SPARED: 90% PLAN: The patient will be admitted to the hospital postoperatively and she will be discharged home once her renal function is stable and she is tolerating a r egular diet. CHRISTINA TAYLOR MD Oct 19, 2018 18:12
[2018-10-19] MEDS: LISINOPRIL 20 MG TAB PO SCH (20:34)
[2018-10-20] VITALS (8 sets, daily range): BP systolic 120–155; BP diastolic 66–88
[2018-10-20] MEDS: MORPHINE 4 MG/ML 1ML VIAL/SYRINGE (J2270) IV PRN ×3 (00:02→10:06)
[2018-10-20] MEDS: ceFAZolin SOD 1 GM in D5W MINI-BAG PLUS 50 ML IV SCH (00:02)
[2018-10-20] MEDS: NS 1,000 ML IV SCH (05:26)
[2018-10-20 06:18] LABS: HEMATOCRIT 33.7 % (36.0-47.0); HEMOGLOBIN 10.9 g/dl (12.0-15.5); MEAN CORPUSCULAR HEMOGLOBIN 27.8 pg (27.0-33.0); MEAN CORPUSCULAR HGB CONC 32.3 g/dl (32.0-36.5); PLATELET COUNT, AUTOMATED 203 10^3/uL (150-450); RED BLOOD COUNT 3.92 10^6/uL (4.00-5.40); WHITE BLOOD COUNT 10.1 10^3/uL (4.0-10.0)
[2018-10-20 06:34] LABS: CALCIUM LEVEL 7.9 MG/DL (8.5-10.1); CREATININE FOR GFR 1.93 MG/DL (0.55-1.30); GLOMERULAR FILTRATION RATE 31.6 (>60); POTASSIUM SERUM 3.9 MEQ/L (3.5-5.1)
--- NOTE | 2018-10-20 07:52 | IPNPDOC ---
Subjective Review oF Systems Chief Complaint The patient is a 32-year-old female admitted with a reason for visit of Renal Mass. Events since Last Encounter No acute events o/n. Good pain control. No n/v. Has not ambulated yet. No f/c/ns. Objective Physical Examination General Exam: Alert, Cooperative, No Acute Distress ABDOMEN EXAM: Soft, Tenderness (mild), Other (incisions clean/dry/intact; ALEJANDRA w/ serosanguinous output) Skin Exam: Nl turgor and temperature Neuro Exam: Normal Speech Psych Exam: Mental status NL, Mood NL Other physical findings catheter draining clear urine Vital Signs/I&O Vital Signs Date Time Temp Pulse Resp B/P (MAP) Pulse Ox O2 Delivery O2 Flow Rate FiO2 10/20/18 06:00 97.5 99 20 120/75 (90) 95 I&O- Last 24 Hours up to 6 AM 10/20/18 06:00 Intake Total 6060 ml Output Total 3155 ml Balance 2905 ml Laboratory Data Labs 24H Laboratory Tests 2 10/19/18 11:49: Nucleated Red Blood Cells % (auto) 0.0, Anion Gap 10, Glomerular Filtration Rate 25.1L, Blood Urea Nitrogen 18, Creatinine 2.36H, Sodium Level 137, Potassium Level 4.5, Chloride Level 107, Carbon Dioxide Level 20L, Calcium Level 8.3L 10/20/18 05:30: Nucleated Red Blood Cells % (auto) 0.0, Anion Gap 6L, Glomerular Filtration Rate 31.6L, Blood Urea Nitrogen 17, Creatinine 1.93H, Sodium Level 140, Potassium Level 3.9, Chloride Level 109H, Carbon Dioxide Level 25, Calcium Level 7.9L CBC/BMP Laboratory Tests 10/19/18 11:49 Red Blood Count 4.41, Mean Corpuscular Volume 85.5, Mean Corpuscular Hemoglobin 27.2, Mean Corpuscular Hemoglobin Concent 31.8 L, Red Cell Distribution Width 14.9 H, Calcium Level 8.3 L 10/20/18 05:30 Red Blood Count 3.92 L, Mean Corpuscular Volume 86.0, Mean Corpuscular Hemoglobin 27.8, Mean Corpuscular Hemoglobin Concent 32.3, Red Cell Distribution Width 15.1 H, Calcium Level 7.9 L Assessment/Plan Date Seen The patient was seen on 10/20/18. Patient Summary This is a 32 y/o F POD1 s/p right robotic partial nephrectomy. She is doing well. Hb stable. Cr trending down, now 1.9. UOP has been good. Plan/VTE VTE Prophylaxis Ordered?: Yes VTE Exclusion Mechanical Proph: N/A:VTE Prophy Ordered Plan/Urinary Catheter Urinary Catheter: D/C Shane Plan - d/c Shane - d/c IVF - strict I/Os - continue home meds - percocet, morhpine prn pain - regular diet - possible discharge home later today versus tomorrow morning CHRISTINA TAYLOR MD Oct 20, 2018 07:52
[2018-10-20] MEDS: DOCUSATE SODIUM 100 MG CAP PO SCH ×2 (08:29→21:21)
[2018-10-20] MEDS: LISINOPRIL 20 MG TAB PO SCH ×2 (08:29→21:22)
[2018-10-20] MEDS: DULoxetine 30 MG CAP (CYMBALTA) PO SCH (08:29)
[2018-10-20] MEDS: CETIRIZINE (ZyrTEC) 10 MG TAB PO SCH (08:29)
[2018-10-20] MEDS: CHLORTHALIDONE 25 MG TAB PO SCH (08:30)
[2018-10-20] MEDS: PERCOCET 5MG/325MG TAB PO PRN ×3 (08:31→18:44)
[2018-10-20] MEDS: AUGMENTIN 500 MG TAB PO SCH ×2 (09:00→21:21)
[2018-10-20] MEDS ORDERED: MORPHINE 4 MG/ML 1ML VIAL/SYRINGE (J2270) IV ONE (11:00)
[2018-10-21 02:00] VITALS: BP 135/83
[2018-10-21] MEDS: PERCOCET 5MG/325MG TAB PO PRN ×3 (02:59→12:45)
[2018-10-21 06:00] VITALS: BP 119/76
[2018-10-21 06:54] LABS: HEMATOCRIT 34.2 % (36.0-47.0); HEMOGLOBIN 11.1 g/dl (12.0-15.5); MEAN CORPUSCULAR HEMOGLOBIN 27.1 pg (27.0-33.0); MEAN CORPUSCULAR HGB CONC 32.5 g/dl (32.0-36.5); MEAN CORPUSCULAR VOLUME 83.6 fl (80.0-96.0); PLATELET COUNT, AUTOMATED 228 10^3/uL (150-450); RED BLOOD COUNT 4.09 10^6/uL (4.00-5.40); WHITE BLOOD COUNT 11.2 10^3/uL (4.0-10.0)
[2018-10-21 07:13] LABS: CALCIUM LEVEL 8.4 MG/DL (8.5-10.1); CREATININE FOR GFR 1.44 MG/DL (0.55-1.30); GLOMERULAR FILTRATION RATE 44.4 (>60); POTASSIUM SERUM 4.2 MEQ/L (3.5-5.1)
--- NOTE | 2018-10-21 07:30 | IPNPDOC ---
Subjective Review oF Systems Chief Complaint The patient is a 32-year-old female admitted with a reason for visit of Renal Mass. Events since Last Encounter No acute events last night. Patient vomited yesterday afternoon shortly after receiving morphine. Since then she has had no nausea. She notes good pain control and no difficulty ambulating. She is tolerating a regular diet. She has been tachycardic w/ HR between 110-120 but she notes that she has had on and off tachycardia previously and has been worked up by cardiology for this. She has no chest pain and no shortness of breath. Denies f/c/ns. Objective Physical Examination General Exam: Alert, Cooperative, No Acute Distress ABDOMEN EXAM: Soft, Tenderness (mild), Other (incisions clean/dry/intact; ALEJANDRA w/ serosanguinous output) Skin Exam: Nl turgor and temperature Neuro Exam: Normal Speech Psych Exam: Mental status NL, Mood NL Vital Signs/I&O Vital Signs Date Time Temp Pulse Resp B/P (MAP) Pulse Ox O2 Delivery O2 Flow Rate FiO2 10/21/18 06:00 97.0 120 18 119/76 (90) 93 I&O- Last 24 Hours up to 6 AM 10/21/18 06:00 Intake Total 1450 ml Output Total 1940 ml Balance -490 ml Laboratory Data Labs 24H Laboratory Tests 2 10/21/18 06:19: Nucleated Red Blood Cells % (auto) 0.0, Anion Gap 8, Glomerular Filtration Rate 44.4L, Blood Urea Nitrogen 14, Creatinine 1.44H, Sodium Level 137, Potassium Level 4.2, Chloride Level 106, Carbon Dioxide Level 23, Calcium Level 8.4L CBC/BMP Laboratory Tests 10/21/18 06:19 Red Blood Count 4.09, Mean Corpuscular Volume 83.6, Mean Corpuscular Hemoglobin 27.1, Mean Corpuscular Hemoglobin Concent 32.5, Red Cell Distribution Width 15.6 H, Calcium Level 8.4 L Assessment/Plan Date Seen The patient was seen on 10/21/18. Patient Summary This is a 32 y/o F POD2 s/p right robotic partial nephrectomy. Her pain is well controlled and she is ambulating well. Her Hb is stable and Cr is trending down, now 1.4. UOP has been very good. The tachycardia is not new as it has been worked up previously. She has no chest pain or shortness of breath. Plan/VTE VTE Prophylaxis Ordered?: Yes VTE Exclusion Mechanical Proph: N/A:VTE Prophy Ordered Plan - d/c ALEJANDRA drain - cont home meds - percocet prn pain - strict I/Os - SCDs when in bed - incentive spirometry - regular diet - discharge home CHRISTINA TAYLOR MD Oct 21, 2018 07:30
[2018-10-21 08:03] VITALS: BP 150/80
[2018-10-21] MEDS: LISINOPRIL 20 MG TAB PO SCH (08:03)
[2018-10-21] MEDS: DOCUSATE SODIUM 100 MG CAP PO SCH (08:03)
[2018-10-21] MEDS: CETIRIZINE (ZyrTEC) 10 MG TAB PO SCH (08:03)
[2018-10-21] MEDS: DULoxetine 30 MG CAP (CYMBALTA) PO SCH (08:03)
[2018-10-21] MEDS: AUGMENTIN 500 MG TAB PO SCH (08:03)
[2018-10-21] MEDS: CHLORTHALIDONE 25 MG TAB PO SCH (08:13)
[2018-10-21] MEDS ORDERED: OXYC1TAB23 PO (08:38)
[2018-10-21] MEDS ORDERED: ACET1TAB55 PO (08:38)
[2018-10-21 10:00] VITALS: BP 123/76
[2018-10-21] MEDS ORDERED: COLA100C5 PO (12:06)
--- NOTE | 2018-10-22 16:55 | DSES ---
DATE OF ADMISSION: 10/19/2018 DATE OF DISCHARGE: 10/21/2018 ADMISSION DIAGNOSIS: Right renal neoplasm. DISCHARGE DIAGNOSIS: Right renal cell carcinoma. ADMITTING PHYSICIAN: Dr. Bryon Davis DISCHARGING PHYSICIAN: Dr. Bryon Davis PROCEDURES PERFORMED: Right robotic-assisted laparoscopic partial nephrectomy. HISTORY OF PRESENT ILLNESS: This 32-year-old female was found to have a 3 cm enhancing neoplasm on the right kidney concerning for malignancy. She was admitted to the hospital and underwent the above-listed procedure. HOSPITALIZATION COURSE: The patient was admitted to the hospital after underling the above-listed surgery. Her postoperative course was for the most part unremarkable. On postoperative day#1, she did have a little difficulty with pain control. Her blood work specifically was notable for a serum creatinine of 1.9, and this was down from 2.4 immediately postoperatively. Her hemoglobin was stable. She did have excellent urine output. Her catheter was removed on postoperative day #1. On postoperative day #2, her pain control was much better. Her creatinine was trending down and came down to 1.4. She continued to have good urine output and minimal output from the Carlos-Moya drain. She was tolerating a regular diet, and she was ambulating well by postoperative day #2. Of note, she did have tachycardia with heart rate in the 110s to 120, and she notes that she has had this happen before, and it has been worked up by cardiology as an outpatient. She was asymptomatic from this. Specifically, she denied chest pain or shortness of breath. She had no calf tenderness. Other than her tachycardia, the remainder of her vital signs was completely normal. Since she was doing well on postoperative day #2, she was deemed ready for discharge home. Her Carlos-Moya drain was removed prior to discharge home. She was discharged home on postoperative da #2 with the plan for her to followup in clinic in 1-2 weeks to discuss pathology results and for a postoperative check. MAGUI
== END 2018-10-21 13:20 | disposition home or self-care (01) | DRG 442 ==
LOC: M OR 07:18 → M MSPAV 12:56
PROVIDERS: ADMIT Urology; ATTEND Urology
PROC: 8E0W4CZ Robotic Assisted Procedure of Trunk Region, Percutaneous Endoscopic Approach (ICD-10-PCS; 2018-10-19)
PROC: 0TB04ZZ Excision of Right Kidney, Percutaneous Endoscopic Approach (ICD-10-PCS; principal; 2018-10-19 07:30)
DX: C64.1 Malignant neoplasm of right kidney, except renal pelvis (principal); F41.9 Anxiety disorder, unspecified; R00.0 Tachycardia, unspecified; J30.2 Other seasonal allergic rhinitis; Z79.899 Other long term (current) drug therapy; Z87.891 Personal history of nicotine dependence

== ENCOUNTER → 2018-11-04 | Outpatient (CLI) | payer OTHER ==
[~2018-11-04] MED LIST changes: +ACET1TAB55 PO; -BUPIVACAINE HCL 0.25% 30 ML VIAL As Ordered ONE; +COLA100C5 PO; -HYDROmorphone HCL 2 MG/ML 1ML VIAL (J1170) As Ordered ONE; -KETAMINE HCL 200 MG/20 ML VIAL As Ordered ONE; -LIDOCAINE 1% MDV INJ 50 ML VIAL As Ordered ONE; -LIDOCAINE 2% INJ 100 MG/5 ML SDV (FOR ANES.) As Ordered ONE; -LR 1,000 ML IV ONE; -MIDAZOLAM INJ 2 MG/2 ML VIAL (J2250) As Ordered ONE; -ONDANSETRON 4MG/2ML VIAL (J2405) As Ordered ONE; +OXYC1TAB23 PO; -PROPOFOL 200 MG/20 ML VIAL As Ordered ONE; -ROCURONIUM BROMIDE 50 MG/5 ML VIAL As Ordered ONE; +SULF1TAB93 PO; -ceFAZolin 2 GM/D5W 50 ML IV BAG (J0690 PER 500MG) As Ordered ONE; -dexameTHASONE 4 MG/ML 1ML VIAL (J1100) As Ordered ONE; -fentaNYL 100 MCG/2 ML INJECTION (J3010) As Ordered ONE
[2018-11-04 17:55] LABS: CREATININE FOR GFR 1.57 MG/DL (0.55-1.30); GLOMERULAR FILTRATION RATE 40.1 (>60); HEMATOCRIT 34.5 % (36.0-47.0); MEAN CORPUSCULAR HEMOGLOBIN 27.7 pg (27.0-33.0); MEAN CORPUSCULAR HGB CONC 31.9 g/dl (32.0-36.5); MEAN CORPUSCULAR VOLUME 86.9 fl (80.0-96.0); PLATELET COUNT, AUTOMATED 306 10^3/uL (150-450); POTASSIUM SERUM 4.2 MEQ/L (3.5-5.1); RED BLOOD COUNT 3.97 10^6/uL (4.00-5.40)
== END ==
LOC: M SMT 15:31
PROVIDERS: ATTEND Urology
DX: C64.1 Malignant neoplasm of right kidney, except renal pelvis (principal); Z09 Encounter for follow-up examination after completed treatment for conditions other than malignant neoplasm

== ENCOUNTER → 2018-12-06 | Outpatient (REF) | payer OTHER ==
[2018-12-06 20:15] LABS: CALCIUM LEVEL 9.1 MG/DL (8.5-10.1); CREATININE FOR GFR 1.25 MG/DL (0.55-1.30); GLOMERULAR FILTRATION RATE 51.9 (>60); POTASSIUM SERUM 4.3 MEQ/L (3.5-5.1)
[2018-12-06 20:23] LABS: HEMOGLOBIN 13.5 g/dl (12.0-15.5); MEAN CORPUSCULAR HEMOGLOBIN 27.9 pg (27.0-33.0); MEAN CORPUSCULAR HGB CONC 32.9 g/dl (32.0-36.5); MEAN CORPUSCULAR VOLUME 84.7 fl (80.0-96.0); PLATELET COUNT, AUTOMATED 314 10^3/uL (150-450); RED BLOOD COUNT 4.84 10^6/uL (4.00-5.40); WHITE BLOOD COUNT 12.7 10^3/uL (4.0-10.0)
== END ==
LOC: M SMT 19:13
PROVIDERS: ATTEND Urology
DX: C64.1 Malignant neoplasm of right kidney, except renal pelvis (principal)